=== PATIENT | male | born 1945 | race Two or more races ===

== ENCOUNTER 2022-11-27 14:57 | Emergency (ER) | payer MEDICARE, SELFPAY ==
[2022-11-27 15:09] VITALS: BP 138/80; PULSE 108; RESP 16; TEMP 36.8; O2SAT 99
--- NOTE | 2022-11-27 15:09 | ED.BACK ---
HPI - Back Pain/Injury General Chief Complaint: Back Pain/Injury Stated Complaint: [place] Time Seen by Provider: 11/27/22 15:12 Source: patient Mode of arrival: ambulatory Limitations: no limitations History of Present Illness HPI Narrative: 77 y/o male presented for c/o sciatica. Reports left hip pain radiating to the ankle. Onset 3 days. Denies known injury. Denies recent lifting, pushing etc. Has not taken anything for pain. Rates pain 7/10 when sitting/at rest. Pain worsens when standing. States he 'needs something to make the pain go away.' Denies numbness, tingling, or weakness of the extremity, denies saddle paresthesia or loss of bowel/bladder control. States he spoke with his physician cousin who advised Toradol injection. Patient is scheduled with his pcp tomorrow and has established an appt with Physical therapy in 4 days. Related Data Home Medications Medication Instructions Recorded Confirmed amlodipine 5 mg tablet 5 mg PO DAILY 11/27/22 11/27/22 glimepiride 1 mg tablet 0.5 mg PO DAILY 11/27/22 11/27/22 hydralazine 100 mg tablet 100 mg PO DAILY 11/27/22 11/27/22 lisinopril 10 mg tablet 10 mg PO DAILY 11/27/22 11/27/22 metformin 500 mg tablet 500 mg PO BID 11/27/22 11/27/22 simvastatin 40 mg tablet 40 mg PO DAILY 11/27/22 11/27/22 Allergies Allergy/AdvReac Type Severity Reaction Status Date / Time No Known Allergies Allergy Mild Verified 11/27/22 15:07 Review of Systems Review of Systems: CONSTITUTIONAL: Denies body aches, fever, chills EYES: Denies visual changes ENT: Denies rhinorrhea, congestion CARDIOVASCULAR: Denies chest pain, palpitations, or edema. RESPIRATORY: Denies cough or dyspnea. GASTROINTESTINAL: Denies abdominal pain, nausea, vomiting, or diarrhea. SKIN: Denies rash, itching, or wounds. MUSCULOSKELETAL: Reports left hip pain. Denies back pain, joint pain, or myalgia. NEUROLOGIC: Denies headache, numbness, tingling, or weakness. All systems reviewed & are unremarkable except as noted in HPI and below PMFSH Past Medical History Medical History (Updated 11/27/22 @ 15:27 by Rosie Herrmann, EMILY) Diabetes Hypertension Comments At time of signature, I have reviewed and agree with nursing past medical, surgical, social and family history unless otherwise noted. Please see nursing chart for further information. There is no relevant family history pertinent to the presenting complaint Exam Narrative: GENERAL: Well-appearing, in no acute distress. HEAD: Normocephalic, atraumatic. EYES: PERRLA, conjunctivae clear CHEST: Speaks in full sentences. No respiratory distress. HEART: Regular rate and rhythm. Normal and equal peripheral pulses. EXTREMITIES: BLE's have normal strength and sensation, normal range of motion. Reports pain with movement at the hip. No ecchymosis, No point tenderness. No open wounds, skin tenting, alignment normal, pulse palpable and equal bilaterally, skin warm, dry, pink. Capillary refill less than 3 seconds. Moderately steady gait SKIN: Warm, dry, no rash. NEURO: Alert and oriented x3. PSYCH: Normal mood and affect Course Course Emergency Course: Patient is aware of diagnosis, understands and agrees to treatment plan. Anticipatory guidance given. Patient agrees to follow-up as directed and is aware of reasons to seek care at the emergency department. Portions of this record may have been created with voice recognition software Level of Care: Express Care Visit Vital Signs Vital signs: Vital Signs Temperature 98.2 F 11/27/22 15:09 Pulse Rate 108 H 11/27/22 15:09 Respiratory Rate 16 11/27/22 15:09 Blood Pressure 138/80 11/27/22 15:09 Pulse Oximetry 99 11/27/22 15:09 Temperature 98.2 F 11/27/22 15:10 Pulse Rate 108 H 11/27/22 15:10 Respiratory Rate 16 11/27/22 15:10 Blood Pressure 138/80 11/27/22 15:10 Pulse Oximetry 99 11/27/22 15:10 Reviewed MDM - Back Pain/Injury MDM Narrative Medical decisio
[2022-11-27 15:10] VITALS: BP 138/80; PULSE 108; RESP 16; TEMP 36.8; O2SAT 99
[2022-11-27] MEDS: KETOROLAC (*BKC) 60 MG/2 ML VIAL IM (15:27)
== END 2022-11-27 15:40 | disposition home or self-care (01) ==
PROVIDERS: Emergency Provider Nurse Practitioner Family; PCP Internal Medicine
DX: M54.16 Radiculopathy, lumbar region (principal); E11.9 Type 2 diabetes mellitus without complications; Z79.84 Long term (current) use of oral hypoglycemic drugs; I10 Essential (primary) hypertension
CPT/HCPCS: 96372; 99213; G0463; J1885